=== PATIENT | female | born 2000 | race Two or more races ===

== ENCOUNTER 2023-02-12 22:10 | Emergency (ER) | payer OTHER ==
[~2023-02-12] VITALS: Ht 160 cm; Wt 55.3 kg
[2023-02-13] MEDS ORDERED: KETO10TA2 PO (03:58)
== END 2023-02-13 04:02 ==
LOC: ER 22:10
DX: R10.2 Pelvic and perineal pain (principal)

== ENCOUNTER → 2023-08-13 11:18 | Outpatient (CLI) | payer OTHER ==
[~2023-08-13 11:18] MED LIST: KETO10TA2 PO; ONDANSETRON ODT4 MG PO; PEPCID40 MG PO
== END | disposition home or self-care (01) ==
LOC: PRENATAL 11:18
PROVIDERS: ATTEND Obstetrics & Gynecology Maternal & Fetal Medicine
DX: O35.9XX0 Maternal care for (suspected) fetal abnormality and damage, unspecified, not applicable or unspecified (principal); O35.3XX0 Maternal care for (suspected) damage to fetus from viral disease in mother, not applicable or unspecified; O44.00 Complete placenta previa NOS or without hemorrhage, unspecified trimester; O98.919 Unspecified maternal infectious and parasitic disease complicating pregnancy, unspecified trimester; Z3A.20 20 weeks gestation of pregnancy

== ENCOUNTER 2023-12-22 12:16 | Inpatient (IN) | payer OTHER ==
[~2023-12-22] VITALS: Ht 152.4 cm; Wt 74.4 kg
[~2023-12-22 12:16] MED LIST changes: +FOLIC ACID20 MG PO
[2023-12-22] MEDS ORDERED: RINGERS SOLUTION,LACTATED 1,000 ML IV SCH (12:30)
[2023-12-22] MEDS ORDERED: CEFAZOLIN SODIUM 1,000 MG VIAL IV SCH (12:30)
[2023-12-22 13:44] LABS: PH,URINE 6.5 (5.0-8.0); URINE APPEARANCE Cloudy; URINE BILIRRUBIN Negative (NEGATIVE); URINE BLOOD Negative; URINE COLOR Yellow; URINE GLUCOSE Negative (NEGATIVE); URINE LEUKOCYTE Small; URINE NITRATE Negative; URINE PROTEIN Trace (NEGATIVE)
[2023-12-22 13:47] LABS: HEMATOCRIT 28.5 % (36.0-45.00); MEAN CELL VOLUME 74.4 fL (80.00-100.00); MEAN CORPUSCULAR HGB CONC 32.9 g/dl (32.0-36.0); PLATELET COUNT 236 K/uL (150-450); RED BLOOD COUNT 3.83 M/uL (4.00-6.00); URINE EPITHELIAL CELLS 133.7 uL (0.0-38.8); URINE RBC 2.1 uL (0.0-20.8); URINE WBC 194.1 uL (0.0-23.2)
[2023-12-22 13:48] LABS: MEAN CORPUSCULAR HEMOGLOBIN 24.5 pg (27.00-32.0); RED CELL DISTRIBUTION WIDTH 25.2 % (11.5-14.5)
[2023-12-22 13:49] LABS: HEMOGLOBIN 9.4 g/dL (12.0-15.00)
[2023-12-22] MEDS ORDERED: PRENATABS RX T1 EACH PO (13:56)
[2023-12-22 14:11] LABS: URINE YEAST NEGATIVE /hpf
[2023-12-22 14:18] LABS: INR 0.95; PARTIAL THROMBOPLASTIN TIME 26.6 SECONDS (22.0-34.0)
[2023-12-22] MEDS ORDERED: MISOPROSTOL 25 MCG TABLET VAG ONE (17:00)
[2023-12-23] MEDS ORDERED: PROMETHAZINE HCL 25 MG/ML AMPUL IV ONE (09:15)
[2023-12-23] MEDS ORDERED: MEPERIDINE HCL/PF 50 MG/ML VIAL IV ONE (09:15)
[2023-12-23] MEDS ORDERED: MISOPROSTOL 25 MCG/4 ML GEL.W.APPL VAG ONE (11:15)
[2023-12-23] MEDS ORDERED: OXYTOCIN 20 UNITS/1000ML RL PIGGYBAG IV ONE (12:42)
[2023-12-23] MEDS ORDERED: ERYTHROMYCIN BASE 1 GM TUBE OP ONE (12:42)
[2023-12-23] MEDS ORDERED: CHLORHEXIDINE GLUCONATE 120 ML BOTTLE TOP ONE (12:42)
[2023-12-23] MEDS ORDERED: LIDOCAINE HCL 1% 10ML VIAL ONE (12:43)
[2023-12-23] MEDS ORDERED: OXYTOCIN 20 UNITS/500ML RL PIGGYBAG IV ONE (13:25)
[2023-12-23] MEDS ORDERED: OXYTOCIN 500 ML IV SCH (13:45)
[2023-12-23] MEDS ORDERED: OXYTOCIN 10 UNITS/ML VIAL IM STA (14:08)
[2023-12-23] MEDS ORDERED: IBUprofen 400 MG TABLET PO PRN (14:15)
[2023-12-23] MEDS ORDERED: CHLORHEXIDINE GLUCONATE 120 ML BOTTLE TOP SCH (14:15)
[2023-12-23] MEDS ORDERED: ERYTHROMYCIN BASE 1 GM TUBE OP SCH (14:15)
[2023-12-23] MEDS ORDERED: OXYTOCIN 1,000 ML IV SCH (15:00)
== END 2023-12-25 18:10 | disposition home or self-care (01) | DRG 806 ==
LOC: OB/GYN 12:16 → LDR 12:16 → OB/GYN 12-23 14:16
PROVIDERS: ADMIT Obstetrics & Gynecology Obstetrics; ATTEND Obstetrics & Gynecology Obstetrics
PROC: 3E0P7VZ Introduction of Hormone into Female Reproductive, Via Natural or Artificial Opening (ICD-10-PCS; 2023-12-22)
PROC: 4A1HXCZ Monitoring of Products of Conception, Cardiac Rate, External Approach (ICD-10-PCS; 2023-12-22)
PROC: BY4FZZZ Ultrasonography of Third Trimester, Single Fetus (ICD-10-PCS; 2023-12-22)
PROC: 10E0XZZ Delivery of Products of Conception, External Approach (ICD-10-PCS; principal; 2023-12-23)
PROC: 3E033VJ Introduction of Other Hormone into Peripheral Vein, Percutaneous Approach (ICD-10-PCS; 2023-12-23)
DX: O36.8130 Decreased fetal movements, third trimester, not applicable or unspecified (principal); O41.03X0 Oligohydramnios, third trimester, not applicable or unspecified; Z37.0 Single live birth; O26.843 Uterine size-date discrepancy, third trimester; Z3A.39 39 weeks gestation of pregnancy

== ENCOUNTER 2024-08-23 12:24 | Emergency (ER) | payer OTHER ==
[~2024-08-23] VITALS: Ht 152.4 cm; Wt 56.7 kg
[~2024-08-23 12:24] MED LIST changes: +PRENATABS RX T1 EACH PO
[2024-08-23 16:12] LABS: HEMOGLOBIN 13.2 g/dL (12.0-15.00); MEAN CELL VOLUME 83.2 fL (80.00-100.00); MEAN CORPUSCULAR HEMOGLOBIN 27.6 pg (27.00-32.0); MEAN CORPUSCULAR HGB CONC 33.1 g/dl (32.0-36.0); PLATELET COUNT 235 K/uL (150-450); RED CELL DISTRIBUTION WIDTH 14.5 % (11.5-14.5)
[2024-08-23 16:13] LABS: URINE APPEARANCE Clear; URINE BILIRRUBIN Negative (NEGATIVE); URINE BLOOD Negative; URINE COLOR Yellow; URINE GLUCOSE Negative (NEGATIVE); URINE KETONE Negative (NEGATIVE); URINE LEUKOCYTE Negative; URINE NITRATE Negative; URINE PROTEIN Negative (NEGATIVE); URINE UROBILINOGEN 0.2 E.U./dl
[2024-08-23 16:17] LABS: URINE EPITHELIAL CELLS 20.3 uL (0.0-38.8); URINE WBC 9.3 uL (0.0-23.2)
[2024-08-23] MEDS ORDERED: ZOVIRAX400 MG PO (17:18)
== END 2024-08-23 17:42 | disposition home or self-care (01) ==
LOC: ER 12:27
PROVIDERS: Preventive Medicine Public Health & General Preventive Medicine
DX: A60.00 Herpesviral infection of urogenital system, unspecified (principal); E16.2 Hypoglycemia, unspecified